=== PATIENT | female | born 1990 | race Caucasian/White ===

== ENCOUNTER → 2016-12-26 | Outpatient (CLI) | payer MEDICAID ==
[~2016-12-26] MED LIST: SODIUM CHLORIDE 0.9% 250 ML in EMPTY BAG 1 BAG IV PRN; SODIUM CHLORIDE 0.9% 500 ML in EMPTY BAG 1 BAG IV PRN
[2016-12-26 14:02] VITALS: TEMP 97.8
[2016-12-26 14:38] VITALS: BP 126/81; PULSE 81; RESP 18
== END | disposition home or self-care (01) ==
LOC: PROCWHC3 13:33
PROVIDERS: ATTEND Internal Medicine Hematology & Oncology
DX: E83.119 Hemochromatosis, unspecified (principal)
CPT/HCPCS: 99195

== ENCOUNTER → 2017-03-22 | Outpatient (CLI) | payer MEDICAID ==
[2017-03-22 09:06] LABS: Basophils % (A) 0 %; Eosinophils % (A) 0 %; HCT 39.2 % (34.0-46.0); HDW 2.98; HGB 13.2 gm/dL (11.4-16.0); Luc % (Auto) 3; Lymphocytes # (A) 1.6 k/uL (1.0-4.8); Lymphocytes % (A) 40 %; MCHC 33.8 g/dL (31.0-37.0); MCV 88.9 fL (80.0-100.0); Mean Platelet Volume 6.7; Monocytes # (A) 0.5 k/uL (0-1.0); Monocytes % (A) 12 %; Neutrophils # (A) 1.8 k/uL (1.3-7.7); Neutrophils % (A) 46 %; RBC 4.41 m/uL (3.80-5.40); RDW 13.3 % (11.5-15.5); WBC 3.9 k/uL (3.8-10.6); WBC (Perox) 3.94
== END | disposition home or self-care (01) ==
LOC: LABWHC1 08:16
PROVIDERS: ATTEND Internal Medicine Hematology & Oncology
DX: E83.119 Hemochromatosis, unspecified (principal); F41.8 Other specified anxiety disorders; H40.9 Unspecified glaucoma; Q51.0 Agenesis and aplasia of uterus
CPT/HCPCS: 36415; 85025

== ENCOUNTER → 2017-03-31 | Outpatient (CLI) | payer MEDICAID ==
[2017-03-31 13:55] VITALS: TEMP 97.4
[2017-03-31 13:57] VITALS: BP 116/76; PULSE 100; RESP 18
== END | disposition home or self-care (01) ==
LOC: PROCWHC3 12:54
PROVIDERS: ATTEND Internal Medicine Hematology & Oncology
DX: E83.119 Hemochromatosis, unspecified (principal)
CPT/HCPCS: 99195

== ENCOUNTER → 2017-03-31 | Outpatient (CLI) | payer MEDICAID ==
[2017-03-31 12:37] LABS: % Iron Saturation 8.6 % (20-50)
== END | disposition home or self-care (01) ==
LOC: LABWHC1 10:16
PROVIDERS: ATTEND Internal Medicine Hematology & Oncology
DX: E83.119 Hemochromatosis, unspecified (principal); H40.9 Unspecified glaucoma; F41.8 Other specified anxiety disorders; Q51.0 Agenesis and aplasia of uterus
CPT/HCPCS: 36415; 82728; 83540; 83550; 85025; 99195

== ENCOUNTER → 2017-06-30 | Outpatient (CLI) | payer MEDICAID ==
[2017-06-30 17:19] LABS: Basophils % (A) 0 %; CH 29.2; CHCM 33.6; Eosinophils % (A) 0 %; HCT 37.8 % (34.0-46.0); HDW 2.92; Luc # (Auto) 0.22; Luc % (Auto) 4; Lymphocytes # (A) 1.5 k/uL (1.0-4.8); Lymphocytes % (A) 27 %; MCH 29.9 pg (25.0-35.0); MCHC 34.3 g/dL (31.0-37.0); Mean Platelet Volume 6.7; Monocytes # (A) 0.6 k/uL (0-1.0); Monocytes % (A) 10 %; Neutrophils # (A) 3.3 k/uL (1.3-7.7); Neutrophils % (A) 59 %; RBC 4.35 m/uL (3.80-5.40); RDW 14.5 % (11.5-15.5); WBC 5.6 k/uL (3.8-10.6); WBC (Perox) 5.96
== END | disposition home or self-care (01) ==
LOC: LABWHC1 16:59
PROVIDERS: ATTEND Internal Medicine Hematology & Oncology
DX: E83.119 Hemochromatosis, unspecified (principal)
CPT/HCPCS: 36415; 85025

== ENCOUNTER → 2017-07-01 | Outpatient (CLI) | payer MEDICAID ==
[~2017-07-01] MED LIST changes: -SODIUM CHLORIDE 0.9% 250 ML in EMPTY BAG 1 BAG IV PRN
[2017-07-01 07:28] VITALS: RESP 16; TEMP 97.7
[2017-07-01 07:44] VITALS: BP 121/82; PULSE 113
== END | disposition home or self-care (01) ==
LOC: PROCWHC3 07:18
PROVIDERS: ATTEND Internal Medicine Hematology & Oncology
DX: E83.119 Hemochromatosis, unspecified (principal)
CPT/HCPCS: 99195

== ENCOUNTER → 2017-10-06 | Outpatient (CLI) | payer MEDICAID ==
[2017-10-06 17:28] LABS: Anisocytosis Slight; Basophils % (A) 0 %; CH 28.6; CHCM 32.4; Eosinophils % (A) 0 %; HCT 36.2 % (34.0-46.0); HDW 2.57; HGB 11.4 gm/dL (11.4-16.0); Luc % (Auto) 2; Lymphocytes # (A) 1.7 k/uL (1.0-4.8); Lymphocytes % (A) 33 %; MCH 27.8 pg (25.0-35.0); MCHC 31.4 g/dL (31.0-37.0); MCV 88.6 fL (80.0-100.0); Mean Platelet Volume 7.2; Monocytes # (A) 0.5 k/uL (0-1.0); Monocytes % (A) 10 %; Neutrophils # (A) 2.8 k/uL (1.3-7.7); Neutrophils % (A) 54 %; RBC 4.09 m/uL (3.80-5.40); RDW 16.7 % (11.5-15.5); WBC 5.2 k/uL (3.8-10.6); WBC (Perox) 5.37
== END | disposition home or self-care (01) ==
LOC: LABWHC1 16:40
PROVIDERS: ATTEND Internal Medicine Hematology & Oncology
DX: E83.119 Hemochromatosis, unspecified (principal)
CPT/HCPCS: 36415; 85025

== ENCOUNTER → 2017-11-15 | Outpatient (CLI) | payer MEDICAID ==
[2017-11-15 12:20] LABS: Basophils % (A) 0 %; Eosinophils % (A) 0 %; HCT 39.4 % (34.0-46.0); HGB 13.1 gm/dL (11.4-16.0); Lymphocytes # (A) 1.6 k/uL (1.0-4.8); Lymphocytes % (A) 28 %; MCHC 33.2 g/dL (31.0-37.0); MCV 87.4 fL (80.0-100.0); Mean Platelet Volume 6.5; Monocytes # (A) 0.6 k/uL (0-1.0); Monocytes % (A) 11 %; Neutrophils # (A) 3.3 k/uL (1.3-7.7); Neutrophils % (A) 58 %; Platelet Count 254 k/uL (150-450); RBC 4.51 m/uL (3.80-5.40); RDW 15.5 % (11.5-15.5); WBC 5.6 k/uL (3.8-10.6)
[2017-11-15 12:32] LABS: ALT 31 U/L (9-52); AST 21 U/L (14-36); Albumin 4.2 g/dL (3.5-5.0); Alkaline Phosphatase 106 U/L (38-126); Anion Gap 8 mmol/L; Blood Urea Nitrogen 10 mg/dL (7-17); Calcium 9.6 mg/dL (8.4-10.2); Carbon Dioxide 32 mmol/L (22-30); Chloride 104 mmol/L (98-107); Cholesterol 260 mg/dL (<200); Glucose 92 mg/dL (74-99); HDL Cholesterol 63 mg/dL (40-60); LDL Cholesterol,Calculated 187 mg/dL (0-99); Potassium 4.1 mmol/L (3.5-5.1); Sodium 144 mmol/L (137-145); Total Bilirubin 0.3 mg/dL (0.2-1.3); Total Protein 7.2 g/dL (6.3-8.2); Triglycerides 49 mg/dL (<150)
[2017-11-15 12:48] LABS: T4, Free (Free Thyroxine) 0.98 ng/dL (0.78-2.19)
== END | disposition home or self-care (01) ==
LOC: LABWHC1 11:15
PROVIDERS: ATTEND Family Medicine
DX: G47.00 Insomnia, unspecified (principal)
CPT/HCPCS: 36415; 80053; 80061; 82607; 84439; 84443; 85025

== ENCOUNTER → 2018-01-01 | Outpatient (CLI) | payer MEDICAID ==
[2018-01-01 12:01] LABS: Basophils % (A) 0 %; Eosinophils % (A) 0 %; HCT 42.4 % (34.0-46.0); Lymphocytes # (A) 1.4 k/uL (1.0-4.8); Lymphocytes % (A) 29 %; MCH 30.2 pg (25.0-35.0); MCHC 33.1 g/dL (31.0-37.0); MCV 91.4 fL (80.0-100.0); Mean Platelet Volume 6.8; Monocytes # (A) 0.5 k/uL (0-1.0); Monocytes % (A) 11 %; Neutrophils # (A) 2.8 k/uL (1.3-7.7); Neutrophils % (A) 57 %; Platelet Count 234 k/uL (150-450); RBC 4.63 m/uL (3.80-5.40); RDW 14.2 % (11.5-15.5); WBC 4.8 k/uL (3.8-10.6)
== END | disposition home or self-care (01) ==
LOC: LABWHC1 11:13
PROVIDERS: ATTEND Internal Medicine Hematology & Oncology
DX: E83.119 Hemochromatosis, unspecified (principal)
CPT/HCPCS: 36415; 85025

== ENCOUNTER → 2018-01-02 | Outpatient (CLI) | payer MEDICAID ==
[2018-01-02 09:07] VITALS: BP 111/76; PULSE 79; RESP 16; TEMP 98.3
== END | disposition home or self-care (01) ==
LOC: PROCWHC3 08:30
PROVIDERS: ATTEND Internal Medicine Hematology & Oncology
DX: E83.119 Hemochromatosis, unspecified (principal)
CPT/HCPCS: 99195

== ENCOUNTER → 2018-02-02 | Outpatient (CLI) | payer MEDICAID ==
--- NOTE | 2018-02-02 19:33 | ECHOF ---
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 This was a technically good study. LV size, wall thickness and systolic function are normal, with an EF greater than 55%. The left andrea tricular size is normal. The right ventricle is normal in size. The left atrial size is normal. The right atrial size is normal. The aortic valve is trileaflet, and appears structurally normal. No aortic stenosis or regurgitation. The mitral valve leaflets are mildly thickened. Mild mitral annular calcification present. Mild m itral regurgitation is present. Mild tricuspid regurgitation present. There is no evidence of pulmonary hypertension. The right v entricular systolic pressure, as measured by Doppler, is 15.14mmHg. The aortic root size is normal. There is no pericardial effusion. CONCLUSIONS -------- 1. LV size, wall thickness and systolic function are normal, with an EF greater than 55%. 2. The left ventricular size is normal. 3. The left atrial size is normal. 4. The aortic valve is trileaflet, and appears structurally normal. No aortic stenosis or regurgitati on. 5. The mitral valve leaflets are mildly thickened. 6. Mild mitral annular calcification present. 7. Mild mitral regurgitation is present. 8. Mild tricuspid regurgitation present. 9. There is no evidence of pulmonary hypertension. 10. The right ventricular systolic pressure, as measured by Doppler, is 15.14mmHg. 11. The aortic root size is normal. 12. There is no pericardial effusion. REAL ESTATE DIRECTOR: Johnna Ortega RDCS
== END | disposition home or self-care (01) ==
LOC: RADECHMAIN 12:52
PROVIDERS: ATTEND Family Medicine
DX: I27.21 Secondary pulmonary arterial hypertension (principal)
CPT/HCPCS: 93306

== ENCOUNTER → 2018-03-31 | Outpatient (CLI) | payer MEDICAID ==
[2018-03-31 11:09] LABS: Basophils % (A) 0 %; Eosinophils % (A) 0 %; HCT 40.1 % (34.0-46.0); HGB 13.4 gm/dL (11.4-16.0); Lymphocytes # (A) 1.4 k/uL (1.0-4.8); Lymphocytes % (A) 33 %; MCHC 33.5 g/dL (31.0-37.0); MCV 89.4 fL (80.0-100.0); Mean Platelet Volume 6.4; Monocytes # (A) 0.4 k/uL (0-1.0); Monocytes % (A) 10 %; Neutrophils # (A) 2.4 k/uL (1.3-7.7); Neutrophils % (A) 56 %; Platelet Count 215 k/uL (150-450); RBC 4.48 m/uL (3.80-5.40); RDW 13.8 % (11.5-15.5); WBC 4.3 k/uL (3.8-10.6)
== END | disposition home or self-care (01) ==
LOC: LABWHC1 10:34
PROVIDERS: ATTEND Internal Medicine Hematology & Oncology
DX: E83.119 Hemochromatosis, unspecified (principal)
CPT/HCPCS: 36415; 85025

== ENCOUNTER → 2018-04-01 | Outpatient (CLI) | payer MEDICAID ==
[2018-04-01 14:35] VITALS: RESP 16; TEMP 98.3
[2018-04-01 14:36] VITALS: BP 125/80; PULSE 108
== END | disposition home or self-care (01) ==
LOC: PROCWHC3 14:02
PROVIDERS: ATTEND Internal Medicine Hematology & Oncology
DX: E83.119 Hemochromatosis, unspecified (principal)
CPT/HCPCS: 99195

== ENCOUNTER 2018-06-14 09:12 | Emergency (ER) | payer MEDICAID ==
[2018-06-14 09:37] VITALS: RESP 18
--- NOTE | 2018-06-14 10:23 | ED ---
General Adult HPI - General Chief complaint: Extremity Injury, Lower Stated complaint: rt foot pain Time Seen by Provider: 06/14/18 09:50 Source: patient, RN notes reviewed Mode of arrival: ambulatory Limitations: no limitations - History of Present Illness Initial comments: Patient is a 27-year-old female presented to the emergency room today with chief complaint of injury to the right ankle and foot that happened yesterday when she was stepping down from a boat. Patient does admit that she was drinking alcohol to time did not feel much pain but noticed this morning when waking up is tender with ambulation. Denies any complaints or symptoms. Patient denies any recent fever, chills, shortness of breath, chest pain, back pain, abdominal pain, nausea or vomiting, numbness or tingling, headaches or visual changes, or any other complaints. - Related Data Home Medications Medication Instructions Recorded Confirmed acetaZOLAMIDE [Diamox Sequels] 500 mg PO BID 09/01/15 06/14/18 Venlafaxine HCl [Effexor] 112.5 mg PO HS 06/14/18 06/14/18 Previous Rx's Medication Instructions Recorded Ibuprofen [Motrin] 600 mg PO Q6HR PRN #30 day 06/14/18 Allergies Allergy/AdvReac Type Severity Reaction Status Date / Time No Known Allergies Allergy Verified 06/14/18 09:37 Review of Systems ROS Statement: Those systems with pertinent positive or pertinent negative responses have been documented in the HPI. ROS Other: All systems not noted in ROS Statement are negative. 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 Hemochromatosis. 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 Glaucoma in both eyes. History of Any Multi-Drug Resistant Organisms: None Reported Additional Past Surgical History / Comment(s): Cataract in left eye. Past Anesthesia/Blood Transfusion Reactions: No Reported Reaction Past Psychological History: Anxiety, Depression, Panic Disorder Smoking Status: Never smoker Past Alcohol Use History: Occasional Past Drug Use History: None Reported - Past Family History Mother Family Medical History: CVA/TIA, Diabetes Mellitus, Hypertension Additional Family Medical History / Comment(s): Benign brain tumor. Father Family Medical History: Hyperlipidemia, Hypertension General Exam - General Exam Comments Initial Comments: General: The patient is awake and alert, in no distress, and does not appear acutely ill. Neck: The neck is supple, there is no tenderness or JVD. Musculoskeletal: Normal appearance the right foot no obvious deformity. Mild tenderness over the proximal fourth and fifth metatarsals. No tenderness to the right knee sensations intact. Pupils 2+. Strength 5/5. Neurological: A&O x 3. CN II-XII intact, There are no obvious motor or sensory deficits. Coordination appears grossly intact. Speech is normal. Skin: Skin is warm and dry and no rashes or lesions are noted. Psychiatric: Normal mood and affect. Limitations: no limitations Course Vital Signs 06/14/18 09:33 Temperature 98.8 F Pulse Rate 104 H Respiratory 18 Rate Blood Pressure 117/80 O2 Sat by Pulse 98 Oximetry Medical Decision Making - Medical Decision Making X-ray negative for any acute fracture dislocation. Results were discussed with the patient. She is advised follow-up in 7-10 days for repeat x-rays if symptoms persist. Disposition Clinical Impression: Ankle sprain Disposition: HOME SELF-CARE Condition: Good Instructions: Ankle Sprain (ED) Additional Instructions: Please follow-up with family doctor or orthopedics in 710 days if symptoms persist for repeat x-rays. Please continue to ice elevate the affected area and use ibuprofen for pain as discussed. Prescriptions: Ibuprofen [Motrin] 600 mg PO Q6HR PRN #30 day PRN Reason: Pain Is patient prescribed a controlled substance at d/c from ED?: No Referrals: Freida Wong MD [Primary Care Provider] - 1-2 days Shanique Grant PAC [PHYSICIAN [employer]] - 1-2 days Time of Disposition: 10:43
--- NOTE | 2018-06-14 10:39 | XR ---
EXAMINATION TYPE: XR foot complete RT, XR ankle complete RT , 6 VIEWS DATE OF EXAM ORDERED: 06/14/2018 HISTORY: Pain. COMPARISON: None. FINDINGS: Osseous structures about the foot are normal. There is no fracture or dislocation or ankle joint effusion. IMPRESSION: NO ACUTE OSSEOUS LESION.
[2018-06-14 11:05] VITALS: BP 113/75; PULSE 88; TEMP 97.5
== END 2018-06-14 11:02 | disposition home or self-care (01) ==
LOC: EC 09:12
DX: S93.602A Unspecified sprain of left foot, initial encounter (principal); F32.9 Major depressive disorder, single episode, unspecified; F41.0 Panic disorder [episodic paroxysmal anxiety]; Z79.899 Other long term (current) drug therapy; X50.1XXA Overexertion from prolonged static or awkward postures, initial encounter; Y92.814 Boat as the place of occurrence of the external cause
CPT/HCPCS: 99283

== ENCOUNTER → 2018-07-09 | Outpatient (CLI) | payer MEDICAID ==
[2018-07-09 09:40] LABS: ALT 25 U/L (9-52); AST 20 U/L (14-36); Albumin 4.2 g/dL (3.5-5.0); Alkaline Phosphatase 96 U/L (38-126); Anion Gap 8 mmol/L; Blood Urea Nitrogen 11 mg/dL (7-17); Carbon Dioxide 22 mmol/L (22-30); Chloride 109 mmol/L (98-107); Glucose 97 mg/dL (74-99); Potassium 3.9 mmol/L (3.5-5.1); Sodium 139 mmol/L (137-145); Total Bilirubin 0.4 mg/dL (0.2-1.3); Total Protein 7.3 g/dL (6.3-8.2)
[2018-07-09 10:33] LABS: HCT 39.3 % (34.0-46.0); HGB 12.6 gm/dL (11.4-16.0); MCH 28.7 pg (25.0-35.0); MCHC 31.9 g/dL (31.0-37.0); Mean Platelet Volume 6.7; Platelet Count 227 k/uL (150-450); RBC 4.37 m/uL (3.80-5.40); RDW 15.2 % (11.5-15.5); WBC 6.3 k/uL (3.8-10.6)
[2018-07-09 11:13] LABS: Anisocytosis (M) Present; Lymphocytes # (M) 1.51 k/uL (1.0-4.8); Neutrophils # (M) 4.28 k/uL (1.3-7.7); Neutrophils % (M) 68 %; Nucleated Red Blood Cells 0 /100 WBC (0-0); Poikilocytosis (M) Present; Total Cells Counted 100
== END | disposition home or self-care (01) ==
LOC: LABWHC1 09:12
PROVIDERS: ATTEND Internal Medicine Interventional Cardiology
DX: E83.119 Hemochromatosis, unspecified (principal); R00.0 Tachycardia, unspecified
CPT/HCPCS: 36415; 80053; 84443; 85025

== ENCOUNTER → 2018-07-10 | Outpatient (CLI) | payer MEDICAID ==
[2018-07-10 09:28] VITALS: RESP 16; TEMP 98
[2018-07-10 10:29] VITALS: BP 138/87; PULSE 113
== END | disposition home or self-care (01) ==
LOC: PROCWHC3 08:47
PROVIDERS: ATTEND Internal Medicine Hematology & Oncology
DX: E83.119 Hemochromatosis, unspecified (principal)
CPT/HCPCS: 99195

== ENCOUNTER → 2018-07-10 | Outpatient (CLI) | payer MEDICAID ==
--- NOTE | 2018-07-10 16:25 | XR ---
EXAMINATION TYPE: XR ankle complete 3 views RT, XR foot complete 3 views RT DATE OF EXAM: 07/10/2018 COMPARISON: NONE HISTORY: 27 year-old female right foot pain near fourth and fifth metacarpal after fall this weekend FINDINGS: Ankle: Ankle mortise remains congruent with preservation of the distal tibiofibular overlap. Talar dome is i ntact. Subtalar joint align. Foot: No acute fracture, subluxation, or dislocation. Joint spaces throughout are maintained. IMPRESSION: Ankle and foot without acute osseous abnormality seen.
== END | disposition home or self-care (01) ==
LOC: RADXRMAIN 13:57
PROVIDERS: ATTEND Nurse Practitioner Family
DX: M79.671 Pain in right foot (principal)
CPT/HCPCS: 99195

== ENCOUNTER → 2018-07-31 | Outpatient (CLI) | payer MEDICAID | END | disposition home or self-care (01) | LOC: RADECHMAIN 12:27 | PROVIDERS: ATTEND Internal Medicine Interventional Cardiology | DX: R00.0 Tachycardia, unspecified (principal) | CPT/HCPCS: 93270; 93271 ==

== ENCOUNTER → 2018-09-10 | Outpatient (CLI) | payer MEDICAID ==
--- NOTE | 2018-09-10 16:21 | CONS ---
CONSULTATION DATE OF SERVICE: 09/10/2018 This patient is a 28-year-old lady who has been evaluated in the sleep center for difficulties falling asleep and multiple awakenings from sleep for many years since childhood. Patient's usual sleep schedule is from around 9 p.m. until 8:30 a.m. on weekdays and from around 9:30 p.m. until 9 a.m. on weekends. She does have a problem with falling asleep for more than 30 minutes, has TV set in bedroom. No clear history of restless leg symptoms while falling asleep, but again, as already mentioned, she does have a problem with falling asleep and has a TV set in the bedroom. During sleep she is in different positions, including back, side, stomach, and she moves across her bed; her covers are out in the morning. She wakes up from sleep up to 5 times, using the restroom 3 times. She has a history of grinding teeth, dry mouth, panic attack, gasping for air, sweating. Sometimes she has symptoms of restless legs during the night. In the morning she wakes up tired, falling asleep during the day, worrying about her sleep, has irritability, depression, anxiety. Burkett Sleepiness Scale is significantly increased at 18. Patient agrees that she could take a nap any time during the day. No history of hypnagogic hallucinations, sleep paralysis or cataplexy. PAST MEDICAL HISTORY: Positive for: 1. Narrow angle glaucoma. 2. Depression. 3. Panic attacks. 4. Hemochromatosis. 5. Mitral regurgitation. 6. Episodes of tachycardia, under evaluation by retail area manager at the present time. PAST SURGICAL HISTORY: 1. Bilateral lens replacement with a goal to improve narrow angle glaucoma, status post surgical treatment of narrow angle glaucoma with laser. 2. Status post multiple phlebotomies for hemochromatosis with a goal to decrease the amount of iron. Presently level of iron in the blood, according to patient, has normalized on the treatment. SOCIAL HISTORY: Negative for smoking. Alcohol consumption occasional. REVIEW OF SYSTEMS: Difficulties initiating sleep. Multiple awakenings from sleep with moving. Significant excessive daytime sleepiness. FAMILY HISTORY: Hypertension, heart problems, hyperlipidemia, stroke, arthritis, asthma, sinus headaches, lung problems, snoring, pneumonia, cancer, diabetes, acid reflux, ulcers, thyroid problems, anemia, mental illness, restless legs. PHYSICAL EXAMINATION: GENERAL: A pleasant 28-year-old lady without distress. VITAL SIGNS: BP 140/82, HR around 108, RR 16, height 5 feet 8 inches, weight 178, body mass index 27.2, temperature 97.9, oxygen saturation at room air 99%. HEENT: PERRLA, EOMI. Evaluation of oropharynx showed tongue protrudes midline. Retrognathia to 3 mm. Moderately low position of soft palate. Some restriction of nasal breathing; possibly nasal septum deviation. NECK: Supple. No JVD. Thyroid is not palpable. Neck is 12-3/4 inches in circumference. LUNGS: Clear to percussion and to auscultation. Good air exchange. No wheezing or rhonchi. HEART: S1, S2 regular. No murmurs, gallops or rubs. ABDOMEN: Soft and nontender. Bowel sounds are present. No organomegaly appreciated. EXTREMITIES: No clubbing or cyanosis. IT PROGRAM AUDITOR: Awake, alert, and oriented X3. Cranial nerves 2 to 7 intact. There is no fasciculation or atrophy. noted. No focal deficits observed. IMPRESSION: 1. Multiple awakenings from sleep with nocturia, some restriction of nasal breathing, retrognathia, moderately low position of soft palate. Rule out obstructive sleep apnea-hypopnea syndrome. 2. Significant amount of movement at night; cover out in the morning. Patient wakes up in a different position in bed than when falling asleep. Possible periodic limb movements. No history of sleepwalking. History of some restless leg symptoms in the middle of the night. 3. Difficulties initiating sleep, insomnia, possibly psychophysiological and also secondary to anxiety and leg symptoms. 4. Narrow angle glaucoma, treated surgically, on eyedrops. Eye pressure presently normal. 5. History of hemochromatosis, on treatment with phlebotomies. According to the patient, the level of iron is presently under control. 6. History of mitral regurgitation. 7. Tachycardia, under evaluation by retail area manager at the present time. 8. Significant excessive daytime sleepiness. Burkett Sleepiness Scale increased at 18. Differential diagnosis should include hypersomnia and narcolepsy without cataplexy. PLAN: 1. Polysomnography for evaluation of patient's breathing during sleep. 2. CPAP/BiPAP titration if sleep study confirms obstructive sleep apnea-hypopnea syndrome. 3. Preferable position during sleep on the side. 4. No driving if patient feels any sleepiness. 5. I will see patient for follow up visit to explain results of testing and following plan. 6. Multiple sleep latency test for objective evaluation of patient's symptoms of excessive daytime sleepiness. Thank you very much for referring this patient for consultation. Sincerely, Jaya Stearns MD, PhD, FAASM Diplomat of [employer] [place] [employer] Ticket Puller of [facility] [place] MMODL / IJN: [id number] /
== END ==
LOC: SLEEP 11:14
PROVIDERS: ATTEND Internal Medicine
DX: G47.00 Insomnia, unspecified (principal); R35.1 Nocturia; H40.20X0 Unspecified primary angle-closure glaucoma, stage unspecified; Z98.890 Other specified postprocedural states; Z86.79 Personal history of other diseases of the circulatory system
CPT/HCPCS: 99211

== ENCOUNTER → 2018-10-26 | Outpatient (CLI) | payer MEDICAID ==
[2018-10-26 07:33] LABS: Basophils % (A) 0 %; Eosinophils # (A) 0.1 k/uL (0-0.7); Eosinophils % (A) 1 %; HCT 38.6 % (34.0-46.0); Lymphocytes # (A) 2.1 k/uL (1.0-4.8); Lymphocytes % (A) 29 %; MCH 27.3 pg (25.0-35.0); MCV 88.1 fL (80.0-100.0); Mean Platelet Volume 6.6; Monocytes # (A) 0.7 k/uL (0-1.0); Monocytes % (A) 10 %; Neutrophils # (A) 4.1 k/uL (1.3-7.7); Neutrophils % (A) 58 %; Platelet Count 250 k/uL (150-450); RBC 4.39 m/uL (3.80-5.40); RDW 15.1 % (11.5-15.5); WBC 7.1 k/uL (3.8-10.6)
== END | disposition home or self-care (01) ==
LOC: LABWHC1 06:42
PROVIDERS: ATTEND Internal Medicine Hematology & Oncology
DX: E83.119 Hemochromatosis, unspecified (principal)
CPT/HCPCS: 36415; 85025

== ENCOUNTER → 2018-10-27 | Outpatient (CLI) | payer MEDICAID ==
[~2018-10-27] MED LIST changes: +SODIUM CHLORIDE 0.9% 500 ML 500 ML in EMPTY BAG 1 BAG IV PRN; -SODIUM CHLORIDE 0.9% 500 ML in EMPTY BAG 1 BAG IV PRN
[2018-10-27 14:07] VITALS: RESP 16; TEMP 97.8
[2018-10-27 14:29] VITALS: BP 118/84; PULSE 102
== END | disposition home or self-care (01) ==
LOC: PROCWHC3 13:23 → EDSTATUS 13:30
PROVIDERS: ATTEND Internal Medicine Hematology & Oncology
DX: E83.119 Hemochromatosis, unspecified (principal)
CPT/HCPCS: 99195

== ENCOUNTER → 2019-03-05 | Outpatient (CLI) | payer MEDICAID ==
[2019-03-05 11:10] LABS: Iron Saturation 4.43 (12.00-45.00)
[2019-03-05 11:16] LABS: Albumin 4.5 g/dL (3.80-4.90); Albumin/Globulin Ratio 2.14 (1.60-3.17); Anion Gap 7.4 mmol/L (4.00-12.00); Calcium 9.6 mg/dL (8.7-10.3); Carbon Dioxide 30.6 mmol/L (21.6-31.8); Globulin 2.1 g/dL (1.6-3.3); LDL Cholesterol,Calculated 151.6 mg/dL (0.0-131.0); Magnesium 1.8 mg/dL (1.5-2.4); Potassium 4.1 mmol/L (3.5-5.5); Total Bilirubin 0.2 mg/dL (0.2-1.2); Total Protein 6.6 g/dL (6.2-8.2); VLDL Calculation 18.4 mg/dL (5.00-40.00)
[2019-03-09 13:38] LABS: Metanephrine, Free <25 pg/mL (< OR = 57); Normetanephrine, Free 84 pg/mL (< OR = 148); Total, Free (MN + NMN) 84 pg/mL (< OR = 205)
== END | disposition home or self-care (01) ==
LOC: LABWHC1 07:12
PROVIDERS: ATTEND Internal Medicine Hematology & Oncology
DX: E83.110 Hereditary hemochromatosis (principal); E78.5 Hyperlipidemia, unspecified; R00.0 Tachycardia, unspecified
CPT/HCPCS: 36415; 80053; 80061; 82607; 82728; 83540; 83550; 83735; 83835; 84439; 84443; 86850; 86900; 86901

== ENCOUNTER → 2019-03-05 | Outpatient (CLI) | payer MEDICAID ==
[2019-03-05 07:35] LABS: Basophils % (A) 0 %; Eosinophils % (A) 1 %; HCT 34.6 % (34.0-46.0); HGB 10.8 gm/dL (11.4-16.0); Hypochromasia Marked; Lymphocytes # (A) 1.5 k/uL (1.0-4.8); Lymphocytes % (A) 26 %; MCH 26.1 pg (25.0-35.0); MCHC 31.3 g/dL (31.0-37.0); MCV 83.2 fL (80.0-100.0); Mean Platelet Volume 7.2; Monocytes # (A) 0.6 k/uL (0-1.0); Monocytes % (A) 10 %; Neutrophils # (A) 3.4 k/uL (1.3-7.7); Neutrophils % (A) 59 %; Platelet Count 290 k/uL (150-450); Poikilocytosis Slight; RBC 4.16 m/uL (3.80-5.40); RDW 14.9 % (11.5-15.5); WBC 5.7 k/uL (3.8-10.6)
== END ==
LOC: PROCWHC3 13:48
PROVIDERS: ATTEND Internal Medicine Hematology & Oncology
DX: E83.119 Hemochromatosis, unspecified (principal)
CPT/HCPCS: 85025

== ENCOUNTER → 2019-10-18 | Outpatient (CLI) | payer MEDICAID ==
[2019-10-18 14:05] VITALS: RESP 16; TEMP 97.9
[2019-10-18 14:07] VITALS: BP 126/82; PULSE 99
[2019-10-18 19:48] LABS: % Iron Saturation 9.43 (12.00-45.00)
[2019-10-18 20:01] LABS: Ferritin 7.4 ng/mL (10.0-291.0)
== END ==
LOC: PROCWHC3 13:01
PROVIDERS: ATTEND Internal Medicine Hematology & Oncology
DX: E83.119 Hemochromatosis, unspecified (principal)
CPT/HCPCS: 36415; 82728; 83540; 83550; 99195

== ENCOUNTER → 2019-10-18 | Outpatient (CLI) | payer MEDICAID ==
[2019-10-18 07:54] LABS: Basophils % (A) 0 %; Eosinophils % (A) 1 %; HCT 41.6 % (34.0-46.0); HGB 14.3 gm/dL (11.4-16.0); Lymphocytes # (A) 2.6 k/uL (1.0-4.8); Lymphocytes % (A) 35 %; MCH 31.8 pg (25.0-35.0); MCHC 34.4 g/dL (31.0-37.0); MCV 92.4 fL (80.0-100.0); Mean Platelet Volume 6.2; Monocytes # (A) 0.6 k/uL (0-1.0); Monocytes % (A) 8 %; Neutrophils # (A) 3.9 k/uL (1.3-7.7); Neutrophils % (A) 52 %; Platelet Count 256 k/uL (150-450); RDW 13.4 % (11.5-15.5); WBC 7.4 k/uL (3.8-10.6)
== END | disposition home or self-care (01) ==
LOC: LABWHC1 06:47
PROVIDERS: ATTEND Internal Medicine Hematology & Oncology
DX: E83.119 Hemochromatosis, unspecified (principal)
CPT/HCPCS: 36415; 85025

== ENCOUNTER → 2019-12-06 | Outpatient (CLI) | payer MEDICAID ==
--- NOTE | 2019-12-06 15:24 | US ---
EXAMINATION TYPE: US thyroid st tissue head/neck DATE OF EXAM: 12/06/2019 COMPARISON: NONE CLINICAL HISTORY: E04.9 Goiter. Enlarged thyroid per physician. GLAND SIZE: Right Lobe: 4.4 x 1.4 x 1.6 cm Overall Parenchyma: homogenous Left Lobe: 3.8 x 1.2 x 1.2 cm Overall Parenchyma: homogeneous Isthmus Thickness: 0.1 cm NODULES RIGHT: # of nodules measured on right: 0 LEFT: # of nodules measured on left: 0 ISTHMUS: # of nodules measured in the isthmus: 0 Bilateral neck scanned, no evidence of lymphadenopathy. IMPRESSION: Upper limits of normal size of the thyroid gland. Thyroid gland is otherwise unremarkable with no nodule seen.
== END | disposition home or self-care (01) ==
LOC: RADUSWWP 14:54
PROVIDERS: ATTEND Family Medicine
DX: E04.9 Nontoxic goiter, unspecified (principal)
CPT/HCPCS: 76536

== ENCOUNTER → 2019-12-29 | Outpatient (CLI) | payer MEDICAID ==
[2019-12-29 08:59] LABS: Basophils % (A) 1 %; Eosinophils # (A) 0.1 k/uL (0-0.7); Eosinophils % (A) 1 %; HCT 43.8 % (34.0-46.0); HGB 14.4 gm/dL (11.4-16.0); Lymphocytes # (A) 2.6 k/uL (1.0-4.8); Lymphocytes % (A) 32 %; MCH 30.4 pg (25.0-35.0); MCHC 32.9 g/dL (31.0-37.0); MCV 92.4 fL (80.0-100.0); Mean Platelet Volume 7.3; Monocytes # (A) 0.8 k/uL (0-1.0); Monocytes % (A) 10 %; Neutrophils # (A) 4.2 k/uL (1.3-7.7); Neutrophils % (A) 53 %; Platelet Count 269 k/uL (150-450); RBC 4.74 m/uL (3.80-5.40); RDW 12.8 % (11.5-15.5)
[2019-12-29 16:08] LABS: Thyroid Peroxidase Antibodies 54.9 U/mL (0.0-60.0)
[2019-12-29 16:17] LABS: African American GFR (CKD) 117.1 (60.0-200.0); Albumin 4.7 g/dL (3.80-4.90); Albumin/Globulin Ratio 2.14 (1.60-3.17); Anion Gap 9.6 mmol/L (4.00-12.00); BUN/Creat Ratio 11.25 Ratio (12.00-20.00); Calcium 9.1 mg/dL (8.7-10.3); Carbon Dioxide 20.4 mmol/L (21.6-31.8); Chol/HDL Ratio 4.75; Globulin 2.2 g/dL (1.6-3.3); LDL Cholesterol,Calculated 160.4 mg/dL (0.0-131.0); Potassium 4.2 mmol/L (3.5-5.5); Total Bilirubin 0.3 mg/dL (0.3-1.2); Total Protein 6.9 g/dL (6.2-8.2); VLDL Calculation 30.6 mg/dL (5.00-40.00)
[2019-12-29 17:43] LABS: T4, Free (Free Thyroxine) 0.8 ng/dL (0.80-1.80)
== END ==
LOC: LABWHC1 08:28
PROVIDERS: ATTEND Family Medicine
DX: E78.5 Hyperlipidemia, unspecified (principal); F41.1 Generalized anxiety disorder; F41.0 Panic disorder [episodic paroxysmal anxiety]
CPT/HCPCS: 36415; 80053; 80061; 82533; 82550; 83735; 84439; 84443; 84480; 85025; 86376

== ENCOUNTER → 2020-06-17 | Outpatient (CLI) | payer MEDICAID ==
[2020-06-17 10:35] LABS: Basophils % (A) 0 %; Eosinophils % (A) 1 %; HCT 42.4 % (34.0-46.0); HGB 14.1 gm/dL (11.4-16.0); Lymphocytes # (A) 1.5 k/uL (1.0-4.8); Lymphocytes % (A) 24 %; MCH 32.2 pg (25.0-35.0); MCHC 33.2 g/dL (31.0-37.0); MCV 96.9 fL (80.0-100.0); Monocytes # (A) 0.5 k/uL (0-1.0); Monocytes % (A) 8 %; Neutrophils # (A) 4.1 k/uL (1.3-7.7); Neutrophils % (A) 66 %; Platelet Count 234 k/uL (150-450); RBC 4.38 m/uL (3.80-5.40); RDW 12.5 % (11.5-15.5); WBC 6.3 k/uL (3.8-10.6)
[2020-06-17 17:17] LABS: % Iron Saturation 45.58 (12.00-45.00); African American GFR (CKD) 101.6 (60.0-200.0); Albumin 4.1 g/dL (3.80-4.90); Albumin/Globulin Ratio 1.78 (1.60-3.17); Anion Gap 6.6 mmol/L (4.00-12.00); BUN/Creat Ratio 14.44 Ratio (12.00-20.00); Calcium 9.1 mg/dL (8.7-10.3); Carbon Dioxide 23.4 mmol/L (21.6-31.8); Chol/HDL Ratio 4.16; Globulin 2.3 g/dL (1.6-3.3); LDL Cholesterol,Calculated 160.6 mg/dL (0.0-131.0); Non-African American GFR(CKD) 87.6 (60.0-200.0); Total Bilirubin 0.3 mg/dL (0.3-1.2); Total Protein 6.4 g/dL (6.2-8.2); VLDL Calculation 22.4 mg/dL (5.00-40.00)
== END | disposition home or self-care (01) ==
LOC: LABMAIN 09:30
PROVIDERS: ATTEND Internal Medicine Hematology & Oncology
DX: Z00.00 Encounter for general adult medical examination without abnormal findings (principal); E78.5 Hyperlipidemia, unspecified; E83.110 Hereditary hemochromatosis
CPT/HCPCS: 36415; 80053; 80061; 82728; 83540; 83550; 84443; 85025

== ENCOUNTER → 2020-09-15 | Outpatient (CLI) | payer MEDICAID ==
[2020-09-16 03:48] LABS: Hepatitis B Surface AB- Quant 3.5 mIU/mL; Hepatitis B Surface Antibody Non-Reactive (Non-Reactive)
[2020-09-16 04:05] LABS: Mumps Virus IgG Ab Interp POSITIVE (NEGATIVE); Mumps Virus IgG Antibody 1.7 AI
== END | disposition home or self-care (01) ==
LOC: LABMAIN 19:34
PROVIDERS: ATTEND Family Medicine
DX: Z28.3 Underimmunization status (principal)
CPT/HCPCS: 36415; 86706; 86735; 86762; 86765; 86787

== ENCOUNTER → 2020-09-18 | Outpatient (CLI) | payer MEDICAID ==
[2020-09-18 16:57] LABS: Basophils % (A) 0 %; Eosinophils % (A) 0 %; HCT 41.3 % (34.0-46.0); HGB 13.7 gm/dL (11.4-16.0); Lymphocytes # (A) 2.2 k/uL (1.0-4.8); Lymphocytes % (A) 32 %; MCH 31.4 pg (25.0-35.0); MCHC 33.1 g/dL (31.0-37.0); MCV 94.9 fL (80.0-100.0); Mean Platelet Volume 6.7; Monocytes # (A) 0.6 k/uL (0-1.0); Monocytes % (A) 9 %; Neutrophils # (A) 3.9 k/uL (1.3-7.7); Neutrophils % (A) 57 %; Platelet Count 206 k/uL (150-450); RBC 4.36 m/uL (3.80-5.40); RDW 12.4 % (11.5-15.5); WBC 6.8 k/uL (3.8-10.6)
== END | disposition home or self-care (01) ==
LOC: LABWHC1 16:11
PROVIDERS: ATTEND Internal Medicine Hematology & Oncology
DX: E83.119 Hemochromatosis, unspecified (principal)
CPT/HCPCS: 36415; 85025

== ENCOUNTER → 2020-09-19 | Outpatient (CLI) | payer MEDICAID ==
[2020-09-19 07:58] VITALS: RESP 16; TEMP 98.6
[2020-09-19 08:20] VITALS: BP 125/90; PULSE 104
== END | disposition home or self-care (01) ==
LOC: PROCWHC3 07:42
PROVIDERS: ATTEND Internal Medicine Hematology & Oncology
DX: E83.119 Hemochromatosis, unspecified (principal)
CPT/HCPCS: 99195

== ENCOUNTER → 2020-12-28 | Outpatient (CLI) | payer MEDICAID ==
[2020-12-28 23:01] LABS: Basophils # (A) 0.01 X 10*3/uL (0.00-0.10); Basophils % (A) 0.1 %; Eosinophils # (A) 0 X 10*3/uL (0.04-0.35); Eosinophils % (A) 0 %; HCT 43.7 % (37.2-46.3); HGB 14.8 g/dL (12.0-15.0); Lymphocytes # (A) 2.09 X 10*3/uL (0.90-5.00); Lymphocytes % (A) 28.2 %; MCH 31.6 pg (27.0-32.0); MCHC 33.9 g/dL (32.0-37.0); MCV 93.2 fL (80.0-97.0); Mean Platelet Volume 9.4 fL (9.5-12.2); Monocytes # (A) 0.73 X 10*3/uL (0.20-1.00); Monocytes % (A) 9.8 %; Neutrophils # (A) 4.55 X 10*3/uL (1.80-7.70); Neutrophils % (A) 61.4 %; Platelet Count 292 X 10*3/uL (140-440); RBC 4.69 X 10*6/uL (4.10-5.20); RDW 12.8 % (11.5-14.5); WBC 7.42 X 10*3/uL (4.50-10.00)
== END | disposition home or self-care (01) ==
LOC: LABWHC1 14:55
PROVIDERS: ATTEND Internal Medicine Hematology & Oncology
DX: F41.8 Other specified anxiety disorders (principal); H40.9 Unspecified glaucoma; Q51.0 Agenesis and aplasia of uterus; E83.119 Hemochromatosis, unspecified
CPT/HCPCS: 36415; 85025

== ENCOUNTER → 2020-12-29 | Outpatient (CLI) | payer MEDICAID ==
[2020-12-29 08:26] VITALS: RESP 16; TEMP 97.6
[2020-12-29 08:29] VITALS: BP 132/94; PULSE 109
== END | disposition home or self-care (01) ==
LOC: PROCWHC3 08:03
PROVIDERS: ATTEND Internal Medicine Hematology & Oncology
DX: E83.119 Hemochromatosis, unspecified (principal)
CPT/HCPCS: 99195

== ENCOUNTER → 2021-01-24 | Outpatient (CLI) | payer MEDICAID ==
[2021-01-25 01:52] LABS: Hemoglobin A1C 4.7 % (4.0-6.0)
[2021-01-25 04:06] LABS: HIV 2 AB Non-Reactive (Non-Reactive); HIV AB P24 Non-Reactive (Non-Reactive); HIV P24 AG Non-Reactive (Non-Reactive)
[2021-01-25 06:17] LABS: Prolactin 15.4 ng/mL (2.8-29.2)
[2021-01-25 13:15] LABS: Hepatitis B Surface Antigen Non-Reactive (Non-Reactive)
== END | disposition home or self-care (01) ==
LOC: LABWHC1 16:00
PROVIDERS: ATTEND Obstetrics & Gynecology Reproductive Endocrinology
DX: Z01.812 Encounter for preprocedural laboratory examination (principal)
CPT/HCPCS: 36415; 82306; 82397; 83036; 84146; 84443; 86704; 86762; 86780; 86787; 86803; 86850; 86900; 86901; 87340; 87390

== ENCOUNTER → 2021-03-29 | Outpatient (CLI) | payer MEDICAID ==
[2021-03-29 19:32] LABS: Basophils % (A) 0 %; Eosinophils # (A) 0.1 k/uL (0-0.7); Eosinophils % (A) 1 %; HCT 39.9 % (34.0-46.0); HGB 14.2 gm/dL (11.4-16.0); Lymphocytes % (A) 27 %; MCH 31.8 pg (25.0-35.0); MCHC 35.5 g/dL (31.0-37.0); MCV 89.5 fL (80.0-100.0); Mean Platelet Volume 6.6; Monocytes % (A) 8 %; Neutrophils # (A) 7.1 k/uL (1.3-7.7); Neutrophils % (A) 63 %; Platelet Count 267 k/uL (150-450); RBC 4.46 m/uL (3.80-5.40); RDW 13.3 % (11.5-15.5); WBC 11.3 k/uL (3.8-10.6)
== END | disposition home or self-care (01) ==
LOC: LABMAIN 19:10
PROVIDERS: ATTEND Internal Medicine Hematology & Oncology
DX: E83.119 Hemochromatosis, unspecified (principal)
CPT/HCPCS: 36415; 85025

== ENCOUNTER → 2021-03-30 | Outpatient (CLI) | payer MEDICAID ==
[2021-03-30 10:46] VITALS: TEMP 98.2
[2021-03-30 11:07] VITALS: BP 120/82; PULSE 109; RESP 14
== END ==
LOC: PROCWHC3 10:31
PROVIDERS: ATTEND Internal Medicine Hematology & Oncology
DX: E83.119 Hemochromatosis, unspecified (principal)
CPT/HCPCS: 99195

== ENCOUNTER → 2021-03-31 | Outpatient (CLI) | payer MEDICAID ==
--- NOTE | 2021-03-31 11:51 | MR ---
EXAMINATION TYPE: MR abdomen wo/w con DATE OF EXAM: 03/31/2021 COMPARISON: Ultrasound abdomen February 01, 2015 HISTORY: History of MRKH [place] (MR[facility]) syndrome:follow up, prior US showed fl uid on SAC, Dr Ross wanted MRI abdomen done as well as pelvis. CONTRAST: Standard multiplanar, multisequence MRI departmental protocol utilizing 8.5 mL intravenous Gadavist g adolinium contrast. Imaging performed of the abdomen. FINDINGS: Lung bases are grossly clear. The liver, gallbladder, spleen, pancreas, and both adrenal gl ands appear within normal limits. No concerning renal mass or hydronephrosis seen bilaterally. No suspicious small or large bowel dilatation. No concerning intra-abdominal ascites. No abnormal gre ater than 1 cm adenopathy. Visualized osseous structures are intact. No enhancing masses are evident. IMPRESSION: Unremarkable MRI abdomen study.
== END | disposition home or self-care (01) ==
LOC: RADMRIMAIN 10:11
PROVIDERS: ATTEND Obstetrics & Gynecology Reproductive Endocrinology
DX: Q52.0 Congenital absence of vagina (principal)
CPT/HCPCS: 74183; A9585

== ENCOUNTER → 2021-04-02 | Outpatient (CLI) | payer MEDICAID ==
--- NOTE | 2021-04-03 05:31 | MR ---
EXAMINATION TYPE: MR pelvis wo/w con DATE OF EXAM: 04/02/2021 COMPARISON: MRI scan to 616 HISTORY: History of MRKH follow up, prior US showed fluid on SAC CONTRAST: Standard multiplanar, multisequence MRI departmental protocol utilizing 8.5 mL intravenous Gadavist g adolinium contrast. Uterus is absent. Urinary bladder is almost empty. There is vagina measuring 5 cm. This appears uncha nged compared to old exam. There is 6 mm cyst in the left adnexal region close to the midline that co uld be ovarian cyst. There is no evidence of a solid pelvic mass. Sacral segments have normal alignm ent. The visualized hip joints are intact. There is trace amount of free fluid in the pelvis above th e urinary bladder. IMPRESSION: Agenesis of the uterus. Hypoplastic vagina. No solid pelvic mass. No adverse change compared to old e xam.
== END | disposition home or self-care (01) ==
LOC: RADMRIMAIN 12:12
PROVIDERS: ATTEND Obstetrics & Gynecology Reproductive Endocrinology
DX: Q51.0 Agenesis and aplasia of uterus (principal)
CPT/HCPCS: 72197; A9585

== ENCOUNTER → 2021-06-19 | Outpatient (CLI) | payer MEDICAID | END | disposition home or self-care (01) | LOC: LABMAIN 11:12 | PROVIDERS: ATTEND Physician Assistant Medical | DX: Z11.59 Encounter for screening for other viral diseases (principal); Z20.822 Contact with and (suspected) exposure to COVID-19 | CPT/HCPCS: 87635 ==

== ENCOUNTER → 2021-09-26 | Outpatient (CLI) | payer MEDICAID | END | disposition home or self-care (01) | LOC: LABMAIN 19:03 | PROVIDERS: ATTEND Physician Assistant | DX: Z20.822 Contact with and (suspected) exposure to COVID-19 (principal) | CPT/HCPCS: 87635 ==

== ENCOUNTER → 2021-11-06 | Outpatient (CLI) | payer MEDICAID | END | disposition home or self-care (01) | LOC: LABMAIN 19:11 | PROVIDERS: ATTEND Physician Assistant Medical | DX: U07.1 COVID-19 (principal) | CPT/HCPCS: 87635 ==

== ENCOUNTER → 2021-12-27 | Outpatient (CLI) | payer MEDICAID | END | disposition home or self-care (01) | LOC: LABMAIN 18:59 | PROVIDERS: ATTEND Nurse Practitioner | DX: Z53.9 Procedure and treatment not carried out, unspecified reason (principal) ==

== ENCOUNTER → 2022-05-11 | Outpatient (CLI) | payer MEDICAID ==
[2022-05-11 16:16] LABS: Basophils # (A) 0.01 X 10*3/uL (0.00-0.10); Basophils % (A) 0.2 %; Eosinophils # (A) 0.01 X 10*3/uL (0.04-0.35); Eosinophils % (A) 0.2 %; HCT 40.7 % (37.2-46.3); HGB 13.7 g/dL (12.0-15.0); Immature Grans, Automated 0.5 %; Lymphocytes # (A) 1.67 X 10*3/uL (0.90-5.00); Lymphocytes % (A) 25.7 %; MCH 32.7 pg (27.0-32.0); MCHC 33.7 g/dL (32.0-37.0); MCV 97.1 fL (80.0-97.0); Mean Platelet Volume 9.8 fL (9.5-12.2); Monocytes # (A) 0.71 X 10*3/uL (0.20-1.00); Monocytes % (A) 10.9 %; NRBC Per 100 WBC 0 /100 WBCS (0.0-0.0); Neutrophils # (A) 4.06 X 10*3/uL (1.80-7.70); Neutrophils % (A) 62.5 %; Platelet Count 229 X 10*3/uL (140-440); RBC 4.19 X 10*6/uL (4.10-5.20); RDW 12.1 % (11.5-14.5); WBC 6.49 X 10*3/uL (4.50-10.00)
[2022-05-11 16:24] LABS: % Iron Saturation 34.35 (12.00-45.00); ALT 17 U/L (8-44); AST 16 U/L (13-35); African American GFR (CKD) 149.6 (60.0-200.0); Albumin 4.2 g/dL (3.8-4.9); Albumin/Globulin Ratio 1.85 (1.60-3.17); Alkaline Phosphatase 125 U/L (41-126); BUN/Creat Ratio 20.92 Ratio (12.00-20.00); Blood Urea Nitrogen 10.9 mg/dL (9.0-27.0); Calcium 8.8 mg/dL (8.7-10.3); Carbon Dioxide 24.5 mmol/L (20.0-27.5); Chloride 105 mmol/L (96-109); Globulin 2.3 g/dL (1.6-3.3); Glucose 91 mg/dL (70-110); Iron 113 ug/dL (50-170); LDL Cholesterol,Calculated 164.2 mg/dL (0.0-131.0); Potassium 4.2 mmol/L (3.5-5.5); Sodium 141 mmol/L (135-145); Total Iron Binding Capacity 329 ug/dL (228-460); Total Protein 6.5 g/dL (6.2-8.2)
== END | disposition home or self-care (01) ==
LOC: LABWHC1 11:36
PROVIDERS: ATTEND Family Medicine
DX: Z00.00 Encounter for general adult medical examination without abnormal findings (principal); E53.8 Deficiency of other specified B group vitamins; E55.9 Vitamin D deficiency, unspecified
CPT/HCPCS: 36415; 80053; 80061; 82306; 82607; 83540; 83550; 84439; 84443; 85025

== ENCOUNTER → 2022-06-07 | Outpatient (CLI) | payer MEDICAID ==
--- NOTE | 2022-06-07 16:01 | XR ---
EXAMINATION TYPE: XR ankle complete LT DATE OF EXAM: 06/07/2022 COMPARISON: None HISTORY: Pain lateral foot TECHNIQUE: 3 view left ankle FINDINGS: Ankle mortise is intact. Soft tissues appear normal. No acute fracture or dislocation is ev ident. Follow up exams can be performed as clinically indicated. IMPRESSION: 1. No acute osseous abnormality left ankle
--- NOTE | 2022-06-07 16:02 | XR ---
EXAMINATION TYPE: XR foot complete LT DATE OF EXAM: 06/07/2022 COMPARISON: None HISTORY: Pain following TECHNIQUE: 3 view left foot FINDINGS: No acute fracture or dislocation is evident. Some varus deformity of the distal fourth and fifth digits is present. Joint spaces appear preserved. Soft tissues are normal. Follow up exams can be performed as clinically indicated. IMPRESSION: 1. No acute osseous abnormality left foot
== END | disposition home or self-care (01) ==
LOC: RADXRMAIN 15:40
PROVIDERS: ATTEND Emergency Medicine
DX: S93.602A Unspecified sprain of left foot, initial encounter (principal); X58.XXXA Exposure to other specified factors, initial encounter

== ENCOUNTER → 2023-05-02 | Outpatient (CLI) | payer MEDICAID ==
--- NOTE | 2023-05-02 09:00 | US ---
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 TECHNIQUE: Multiple sonographic images of the right upper quadrant are obtained. FINDINGS: EXAM MEASUREMENTS: Liver Length: 12.1 cm Gallbladder Wall: .2 cm CBD: .6 cm Right Kidney: 9.6 x 4.8 x 3.5 cm WELDING MACHINE FEEDER NOTES: Pancreas: Obscured by bowel gas Liver: Increased attenuation Gallbladder: Limited no stones visualized Evidence for sonographic Nye's sign: no CBD: wnl Right Kidney: No hydronephrosis or masses seen IMPRESSION: There appears to be mild hepatic steatosis. Correlate with liver function testing.
== END | disposition home or self-care (01) ==
LOC: RADUSWWP 08:15
PROVIDERS: ATTEND Internal Medicine Hematology & Oncology
DX: E83.110 Hereditary hemochromatosis (principal); K76.0 Fatty (change of) liver, not elsewhere classified
CPT/HCPCS: 76705

== ENCOUNTER → 2023-09-05 | Outpatient (CLI) | payer MEDICAID ==
[2023-09-05 11:35] LABS: Basophils % (A) 0 %; Eosinophils % (A) 0 %; HCT 41.3 % (34.0-46.0); HGB 14.3 gm/dL (11.4-16.0); Lymphocytes # (A) 1.7 k/uL (1.0-4.8); Lymphocytes % (A) 26 %; MCH 32.9 pg (25.0-35.0); MCHC 34.7 g/dL (31.0-37.0); MCV 94.8 fL (80.0-100.0); Mean Platelet Volume 7.5; Monocytes # (A) 0.5 k/uL (0-1.0); Monocytes % (A) 8 %; Neutrophils # (A) 4.3 k/uL (1.3-7.7); Neutrophils % (A) 64 %; Platelet Count 207 k/uL (150-450); RBC 4.36 m/uL (3.80-5.40); RDW 12.2 % (11.5-15.5); WBC 6.7 k/uL (3.8-10.6)
[2023-09-05 17:36] LABS: ALT 13 U/L (8-44); AST 16 U/L (13-35); Albumin 4.2 d/dL (3.8-4.9); Albumin/Globulin Ratio 1.75 Ratio (1.60-3.17); Alkaline Phosphatase 100 U/L (41-126); BUN/Creat Ratio 22.17 Ratio (12.00-20.00); Blood Urea Nitrogen 13.3 mg/dL (9.0-27.0); Calcium 9.4 mg/dL (8.7-10.3); Carbon Dioxide 18.3 mmol/L (21.6-31.8); Chloride 103 mmol/L (96-109); Chol/HDL Ratio 5.13 Ratio; Globulin 2.4 d/dL (1.6-3.3); Glucose 96 mg/dL (70-110); LDL Cholesterol,Calculated 150.1 mg/dL (0.0-131.0); Potassium 4.2 mmol/L (3.5-5.5); Sodium 140 mmol/L (135-145); Total Bilirubin 0.4 mg/dL (0.3-1.2); Total Protein 6.6 d/dL (6.2-8.2)
== END | disposition home or self-care (01) ==
LOC: LABWHC1 09:29
PROVIDERS: ATTEND Family Medicine
DX: Z00.00 Encounter for general adult medical examination without abnormal findings (principal); I27.21 Secondary pulmonary arterial hypertension; E53.8 Deficiency of other specified B group vitamins; E55.9 Vitamin D deficiency, unspecified; E78.2 Mixed hyperlipidemia
CPT/HCPCS: 36415; 80053; 80061; 82306; 82607; 84443; 85025

== ENCOUNTER → 2024-03-10 | Outpatient (CLI) | payer MEDICAID ==
[2024-03-10 13:50] LABS: Basophils % (A) 0 %; Eosinophils % (A) 0 %; HCT 44.7 % (34.0-46.0); HGB 15.3 gm/dL (11.4-16.0); Lymphocytes # (A) 1.7 k/uL (1.0-4.8); Lymphocytes % (A) 24 %; MCH 32.6 pg (25.0-35.0); MCHC 34.2 g/dL (31.0-37.0); MCV 95.3 fL (80.0-100.0); Mean Platelet Volume 7.4; Monocytes # (A) 0.5 k/uL (0-1.0); Monocytes % (A) 7 %; Neutrophils # (A) 4.7 k/uL (1.3-7.7); Neutrophils % (A) 67 %; Platelet Count 239 k/uL (150-450); RBC 4.68 m/uL (3.80-5.40); RDW 12.2 % (11.5-15.5); WBC 7.1 k/uL (3.8-10.6)
[2024-03-10 14:17] VITALS: RESP 16; TEMP 97.6
[2024-03-10 15:11] VITALS: BP 113/79; PULSE 94
== END ==
LOC: PROCWHC3 13:25
PROVIDERS: ATTEND Internal Medicine Hematology & Oncology
DX: E83.119 Hemochromatosis, unspecified (principal)
CPT/HCPCS: 36415; 85025; 99195

== ENCOUNTER → 2024-05-14 | Outpatient (CLI) | payer MEDICAID ==
--- NOTE | 2024-05-14 17:02 | US ---
EXAMINATION TYPE: US liver DATE OF EXAM: 05/14/2024 COMPARISON: Abdominal ultrasound 05/02/2023, MR abdomen 03/31/2021 CLINICAL INDICATION: Female, 33 years old with history of E83.119 HEMOCHROMATOSIS, UNSPECIFIED; Patie nt denies any signs or symptoms at this time TECHNIQUE: Multiple sonographic images of the right upper quadrant are obtained. FINDINGS: EXAM MEASUREMENTS: Liver Length: 11.9 cm Gallbladder Wall: 0.2 cm CBD: 0.4 cm Right Kidney: 11.1 x 5.2 x 5.5 cm DEBURRING MACHINE OPERATOR NOTES: Pancreas: Obscured by bowel gas Liver: wnl Gallbladder: wnl Evidence for sonographic Nye's sign: No CBD: wnl Right Kidney: wnl Pancreas is obscured by overlying bowel gas. Liver is unremarkable without focal lesion. Noncirrhotic morphology. Gallbladder demonstrates no stones, wall thickening, or stranding fluid. Negative sonogr aphic Nye's sign. Common bile duct is within normal limits. Right kidney demonstrates no hydroneph rosis, nephrolithiasis, or solid mass. IMPRESSION: No ultrasound evidence for an acute process.
== END | disposition home or self-care (01) ==
LOC: RADUSWWP 07:33
PROVIDERS: ATTEND Internal Medicine Hematology & Oncology
DX: E83.119 Hemochromatosis, unspecified (principal); Q51.0 Agenesis and aplasia of uterus; H40.9 Unspecified glaucoma; F41.8 Other specified anxiety disorders; Z71.3 Dietary counseling and surveillance
CPT/HCPCS: 76705

== ENCOUNTER → 2024-09-14 | Outpatient (CLI) | payer BC ==
[2024-09-14 11:37] LABS: Basophils % (A) 0 %; Eosinophils # (A) 0.1 k/uL (0-0.7); Eosinophils % (A) 1 %; HCT 44.2 % (34.0-46.0); HGB 15.3 gm/dL (11.4-16.0); Lymphocytes # (A) 2.3 k/uL (1.0-4.8); Lymphocytes % (A) 32 %; MCH 33.3 pg (25.0-35.0); MCHC 34.6 g/dL (31.0-37.0); MCV 96.4 fL (80.0-100.0); Mean Platelet Volume 6.8; Monocytes # (A) 0.6 k/uL (0-1.0); Monocytes % (A) 9 %; Neutrophils % (A) 57 %; Platelet Count 256 k/uL (150-450); RBC 4.58 m/uL (3.80-5.40); RDW 11.7 % (11.5-15.5); WBC 7.1 k/uL (3.8-10.6)
[2024-09-14 11:51] LABS: ALT 16 U/L (4-34); AST 20 U/L (14-36); African American GFR (CKD) >90 (>60 ml/min/1.73 sqM); Albumin 4.3 g/dL (3.5-5.0); Albumin/Globulin Ratio 1.4; Alkaline Phosphatase 108 U/L (38-126); Anion Gap 8 mmol/L; Blood Urea Nitrogen 14 mg/dL (7-17); Calcium 9.3 mg/dL (8.4-10.2); Carbon Dioxide 22 mmol/L (22-30); Chloride 109 mmol/L (98-107); Globulin 3.1 g/dL; Glucose 99 mg/dL (74-99); Non-African American GFR(CKD) >90 (>60 ml/min/1.73 sqM); Potassium 4.2 mmol/L (3.5-5.1); Sodium 139 mmol/L (137-145); Total Bilirubin 0.4 mg/dL (0.2-1.3); Total Protein 7.4 g/dL (6.3-8.2)
[2024-09-14 21:11] LABS: Chol/HDL Ratio 4.77 Ratio; LDL Cholesterol,Calculated 156.4 mg/dL (0.0-131.0)
== END | disposition home or self-care (01) ==
LOC: LABWHC1 10:51
PROVIDERS: ATTEND Family Medicine
DX: I27.21 Secondary pulmonary arterial hypertension (principal); F41.0 Panic disorder [episodic paroxysmal anxiety]; E78.2 Mixed hyperlipidemia; G47.13 Recurrent hypersomnia; E55.9 Vitamin D deficiency, unspecified; D51.9 Vitamin B12 deficiency anemia, unspecified
CPT/HCPCS: 36415; 80053; 80061; 82024; 82306; 82533; 82607; 82626; 84403; 84443; 85025

== ENCOUNTER → 2024-10-13 | Outpatient (CLI) | payer BC ==
[2024-10-14 04:28] LABS: Prolactin 9.5 ng/mL (2.800-29.200)
[2024-10-14 04:32] LABS: Hepatitis B Surface Antigen Nonreactive (Nonreactive); Hepatitis C IgG Antibody Nonreactive (Nonreactive)
[2024-10-14 10:11] LABS: Hepatits C Virus RNA Not detected (Not detected); Hepatits C Virus RNA, Quant <12 IU/mL (<12); LOG HCV IU/mL <1.08 (<1.08)
[2024-10-14 19:01] LABS: Anti-Mullerian Hormone 1.82 ng/mL (0.36 - 10.07)
[2024-10-15 10:22] LABS: HIV-1 RNA Not detected (Not detected); HIV-1 RNA, Quant <20 Copies/mL (<20); LOG HIV Copies/mL <1.30 (<1.30)
== END | disposition home or self-care (01) ==
LOC: LABWHC1 15:44
PROVIDERS: ATTEND Obstetrics & Gynecology Reproductive Endocrinology
DX: Z01.812 Encounter for preprocedural laboratory examination (principal)
CPT/HCPCS: 36415; 82306; 82397; 83036; 84146; 84443; 86704; 86765; 86780; 86787; 86803; 86850; 86900; 86901; 87340; 87522; 87536

== ENCOUNTER → 2025-06-10 | Outpatient (CLI) | payer BC | END | disposition home or self-care (01) | LOC: LABWHC1 12:12 | PROVIDERS: ATTEND Obstetrics & Gynecology Reproductive Endocrinology | DX: Z01.812 Encounter for preprocedural laboratory examination (principal) | CPT/HCPCS: 36415; 86644; 86645 ==